=== PATIENT | female | born 1955 | race Caucasian/White ===

== ENCOUNTER 2020-06-06 21:39 | Inpatient (IN) | payer MEDICAID ==
[~2020-06-06] VITALS: Ht 157.5 cm; Wt 58.7 kg
[2020-06-06] MEDS ORDERED: INSULIN HUMULIN R 100 UNIT/ML 3ML ONE ×2 (22:05→23:30)
[2020-06-06 22:06] LABS: BASOPHILS % (AUTO) 0.7 % (0.0-5.0); EOSINOPHILS % (AUTO) 2.1 % (0.0-8.0); HEMATOCRIT 42.9 % (36-48); MEAN CORPUSCULAR HEMOGLOBIN 29.1 pg (27.0-33.0); MEAN CORPUSCULAR HGB CONC 33.3 g/dL (32.0-36.0); MEAN CORPUSCULAR VOLUME 87.4 fL (79-99); MONOCYTES % (AUTO) 5.9 % (3.0-13.0); NEUTROPHILS % (AUTO) 68.9 % (40.0-77.0); PLATELET COUNT (AUTO) 355 K/uL (130-400); RED BLOOD CELL COUNT(AUTO) 4.91 MIL/uL (4.00-5.50); RED CELL DISTRIBUTION WIDTH 14.4 % (11.0-15.5); WHITE BLOOD COUNT (AUTO) 7.6 K/uL (4.8-10.8)
[2020-06-06 22:21] LABS: INR 0.92 (0.85-1.15); PROTHROMBIN TIME 9.9 SEC (9.6-11.6)
[2020-06-06 22:22] LABS: PARTIAL THROMBOPLASTIN TIME 24.2 SEC (26.3-35.5)
[2020-06-06 22:26] LABS: ALBUMIN 1.4 g/dL (3.5-5.0); BILIRUBIN,TOTAL 0.2 mg/dL (0.2-1.0); CREATININE 0.8 mg/dL (0.5-1.5); POTASSIUM 3.4 mmol/L (3.5-5.1); TOTAL PROTEIN, SERUM 5.4 g/dL (6.0-8.3)
[2020-06-06 22:49] LABS: APPEARANCE,URINE Cloudy (CLEAR); BILIRUBIN,URINE Negative (NEGATIVE); COLOR,URINE Yellow (YELLOW); GLUCOSE, URINE (UA) >=1000 mg/dL (NEGATIVE); KETONES,URINE 40 mg/dL (NEGATIVE); LEUKOCYTE ESTERASE ,URINE Trace (NEGATIVE); NITRATE,URINE Positive (NEGATIVE); OCCULT BLOOD,URINE Large (NEGATIVE); PH,URINE 5.5 (5.0-8.0); PROTEIN,URINE 300 mg/dL (NEGATIVE); UROBILINOGEN,URINE 0.2 mg/dL (0.2-1.0)
[2020-06-06 22:57] LABS: ABG BASE EXCESS 3.3 mmol/L (-2.0-3.0); ABG HCO3 27.5 mmol/L (21.0-28.0); ABG OXYGEN SATURATION 96.5 % (95.0-99.0); ABG PCO2 41 mmHg (32-45)
[2020-06-06] MEDS ORDERED: KCL 20 MEQ ERTAB PO ONE (23:14)
[2020-06-06] MEDS ORDERED: CEFTRIAXONE 1G VIAL ONE (23:14)
[2020-06-06 23:19] LABS: BACTERIA,URINE Many /HPF (None Seen); YEAST,URINE BUDDING Moderate /HPF (None Seen)
[2020-06-07] MEDS ORDERED: 0.9%NACL 1000ML 2,000 ML IV ONE (00:20)
[2020-06-07] MEDS ORDERED: INSULIN HUMULIN R 100 UNIT/ML 3ML ONE ×3 (02:35→21:39)
[2020-06-07 06:35] LABS: CREATININE 0.7 mg/dL (0.5-1.5); POTASSIUM 3.3 mmol/L (3.5-5.1)
[2020-06-07] MEDS ORDERED: KCL 20 MEQ ERTAB PO ONE (06:45)
[2020-06-07] MEDS ORDERED: ACETAMINOPHEN 325 MG TAB PO PRN ×2 (09:15)
[2020-06-07] MEDS: 0.9%NACL 1000ML 1,000 ML IV SCH (09:15)
[2020-06-07] MEDS: CEFTRIAXONE 1G VIAL IVP SCH (09:15)
[2020-06-07] MEDS: KCL 20 MEQ ERTAB PO SCH (09:15)
[2020-06-07] MEDS ORDERED: INSULIN GLARGINE 100 UNITS/ML 10 ML VIAL SQ SCH (09:15)
[2020-06-07] MEDS ORDERED: CEFTRIAXONE 1G VIAL ONE (10:37)
[2020-06-07] MEDS ORDERED: GADODIAMIDE 10 MMOL/20 ML VIAL IV ONE (10:55)
[2020-06-07] MEDS ORDERED: 0.9%NACL 1000ML 1,000 ML IV ONE (11:20)
[2020-06-07] MEDS: INSULIN HUMULIN R 100 UNIT/ML 3ML SQ SCH ×3 (11:30→21:00)
[2020-06-07 13:31] LABS: AMPHET/METH SCREEN,URINE NEGATIVE (NEGATIVE); BARBITURATE SCREEN, URINE NEGATIVE (NEGATIVE); BENZODIAZEPINES SCREEN,URINE NEGATIVE (NEGATIVE); CANNABINOID SCREEN,URINE NEGATIVE (NEGATIVE); COCAINE SCREEN,URINE NEGATIVE (NEGATIVE); OPIATE SCREEN,URINE NEGATIVE (NEGATIVE); PHENCYCLIDINE SCREEN,URINE NEGATIVE (NEGATIVE)
[2020-06-07] MEDS ORDERED: GABAPENTIN 100 MG CAPSULE ONE (15:08)
[2020-06-07] MEDS ORDERED: FAMOTIDINE 20MG TAB ONE (20:52)
[2020-06-07] MEDS: FAMOTIDINE 20MG TAB PO SCH (21:00)
[2020-06-07 23:05] VITALS: BP 120/57
[2020-06-08] MEDS: CEFTRIAXONE 1G VIAL IVP SCH (00:05)
[2020-06-08] MEDS: 0.9%NACL 1000ML 1,000 ML IV SCH ×2 (01:55→21:07)
[2020-06-08 04:00] VITALS: BP 107/74
[2020-06-08] MEDS: INSULIN HUMULIN R 100 UNIT/ML 3ML SQ SCH ×4 (05:57→21:05)
[2020-06-08 06:35] LABS: BASOPHILS % (AUTO) 0.5 % (0.0-5.0); EOSINOPHILS % (AUTO) 3.5 % (0.0-8.0); HEMATOCRIT 42.5 % (36-48); MEAN CORPUSCULAR HEMOGLOBIN 28.8 pg (27.0-33.0); MEAN CORPUSCULAR HGB CONC 32.7 g/dL (32.0-36.0); MONOCYTES % (AUTO) 6.4 % (3.0-13.0); NEUTROPHILS % (AUTO) 55.3 % (40.0-77.0); PLATELET COUNT (AUTO) 341 K/uL (130-400); RED BLOOD CELL COUNT(AUTO) 4.83 MIL/uL (4.00-5.50); RED CELL DISTRIBUTION WIDTH 14.5 % (11.0-15.5); WHITE BLOOD COUNT (AUTO) 7.8 K/uL (4.8-10.8)
[2020-06-08 06:45] LABS: CREATININE 1.6 mg/dL (0.5-1.5); POTASSIUM 4.3 mmol/L (3.5-5.1)
[2020-06-08 07:59] VITALS: BP 127/61
[2020-06-08] MEDS ORDERED: METFORMIN HCL 500 MG TABLET PO SCH (08:00)
[2020-06-08] MEDS ORDERED: INSULIN GLARGINE 100 UNITS/ML 10 ML VIAL SQ SCH (09:00)
[2020-06-08] MEDS: KCL 20 MEQ ERTAB PO SCH (09:15)
[2020-06-08] MEDS: GABAPENTIN 100 MG CAPSULE PO SCH ×2 (09:45→21:02)
[2020-06-08] MEDS: FAMOTIDINE 20MG TAB PO SCH ×2 (09:45→21:02)
[2020-06-08] MEDS: INSULIN GLARGINE 100 UNITS/ML 10 ML VIAL SQ SCH (09:53)
[2020-06-08 11:54] VITALS: BP 137/74
[2020-06-08] MEDS: INSULIN LISPRO 100 UNIT/ML 3ML SQ SCH ×2 (12:24→16:42)
[2020-06-08 16:12] VITALS: BP 115/60
[2020-06-08 17:27] LABS: CREATININE 0.7 mg/dL (0.5-1.5); POTASSIUM 4.1 mmol/L (3.5-5.1)
[2020-06-08] MEDS ORDERED: ENOXAPARIN SODIUM 40 MG/0.4 ML SYRINGE SQ SCH (20:00)
[2020-06-08 20:13] VITALS: BP 134/60
[2020-06-08] MEDS: ENOXAPARIN SODIUM 30 MG/0.3 ML SQ SCH (21:04)
[2020-06-08] MEDS ORDERED: CEFTRIAXONE 1G VIAL IVP SCH (21:15)
[2020-06-08 23:47] VITALS: BP 106/45
[2020-06-09 03:51] LABS: BASOPHILS % (AUTO) 0.5 % (0.0-5.0); EOSINOPHILS % (AUTO) 2.9 % (0.0-8.0); HEMATOCRIT 43.7 % (36-48); LYMPHOCYTES % (AUTO) 36.8 % (21.0-51.0); MEAN CORPUSCULAR HEMOGLOBIN 28.3 pg (27.0-33.0); MEAN CORPUSCULAR HGB CONC 31.8 g/dL (32.0-36.0); MEAN CORPUSCULAR VOLUME 88.8 fL (79-99); MONOCYTES % (AUTO) 7.2 % (3.0-13.0); NEUTROPHILS % (AUTO) 52.4 % (40.0-77.0); PLATELET COUNT (AUTO) 359 K/uL (130-400); RED BLOOD CELL COUNT(AUTO) 4.92 MIL/uL (4.00-5.50); RED CELL DISTRIBUTION WIDTH 14.7 % (11.0-15.5); WHITE BLOOD COUNT (AUTO) 8.7 K/uL (4.8-10.8)
[2020-06-09 04:07] LABS: CREATININE 0.6 mg/dL (0.5-1.5); POTASSIUM 4.5 mmol/L (3.5-5.1)
[2020-06-09 04:21] VITALS: BP 151/79
[2020-06-09] MEDS: INSULIN LISPRO 100 UNIT/ML 3ML SQ SCH ×2 (07:22→11:41)
[2020-06-09] MEDS: INSULIN HUMULIN R 100 UNIT/ML 3ML SQ SCH ×3 (07:23→16:02)
[2020-06-09 08:06] VITALS: BP 146/74
[2020-06-09] MEDS: FAMOTIDINE 20MG TAB PO SCH (08:51)
[2020-06-09] MEDS: GABAPENTIN 100 MG CAPSULE PO SCH (08:52)
[2020-06-09] MEDS: ENOXAPARIN SODIUM 30 MG/0.3 ML SQ SCH (08:53)
[2020-06-09] MEDS: INSULIN GLARGINE 100 UNITS/ML 10 ML VIAL SQ SCH (08:56)
[2020-06-09 09:05] LABS: CREATININE,URINE RANDOM 55 mg/dL (30-135); SODIUM,URINE RANDOM 28 mmol/l (40-220)
[2020-06-09] MEDS ORDERED: ENOXAPARIN SODIUM 40 MG/0.4 ML SYRINGE SQ SCH (09:25)
[2020-06-09] MEDS: KCL 20 MEQ ERTAB PO SCH (10:29)
[2020-06-09 11:32] VITALS: BP 110/57
[2020-06-09] MEDS: 0.9%NACL 1000ML 1,000 ML IV SCH (11:36)
[2020-06-09] MEDS ORDERED: CEPH500B PO (13:48)
[2020-06-09] MEDS ORDERED: INSU3INS3 SQ ×2 (13:48→13:58)
[2020-06-09] MEDS ORDERED: METF-444 PO (13:58)
[2020-06-09 16:28] VITALS: BP 133/50
== END 2020-06-09 17:15 | disposition home or self-care (01) | DRG 463 ==
LOC: EDH 21:39 → EDHIP 21:40 → OBSVTOIN 21:40 → 3DH 06-07 23:05
PROVIDERS: ADMIT Internal Medicine; ATTEND Internal Medicine
DX: N39.0 Urinary tract infection, site not specified (principal); N17.9 Acute kidney failure, unspecified; E11.65 Type 2 diabetes mellitus with hyperglycemia; Z20.828 Contact with and (suspected) exposure to other viral communicable diseases; I10 Essential (primary) hypertension; E78.5 Hyperlipidemia, unspecified; R53.1 Weakness; Z83.3 Family history of diabetes mellitus; Z87.891 Personal history of nicotine dependence; Z79.4 Long term (current) use of insulin; M54.16 Radiculopathy, lumbar region
CPT/HCPCS: 36415; 36600; 70450; 70553; 71045; 72148; 80048; 80053; 80305; 81001; 82010; 82550; 82570; 82607; 82746; 82803; 82948; 83036; 83735; 83880; 84300; 84443; 84484; 85025; 85610; 85730; 86592; 87077; 87088; 87186; 87426; 87804; 87880; 93005; 93970; 97039; A9579; G0378; J0696; J1650; J1815; J7030; U0003